=== PATIENT | female | born 1970 | race Caucasian/White ===

== ENCOUNTER 2020-06-04 13:15 | Emergency (ER) | payer MEDICAID, SELFPAY ==
[~2020-06-04] VITALS: Ht 165.1 cm; Wt 85.9 kg
[2020-06-04] MEDS ORDERED: PROV108A INH (13:31)
[2020-06-04] MEDS ORDERED: BYST10TA2 PO (13:31)
[2020-06-04] MEDS ORDERED: SYNT137T7 PO (13:31)
[2020-06-04] MEDS ORDERED: ZYPR20TA PO (13:31)
[2020-06-04] MEDS ORDERED: BUPR1FIL5 SL (13:31)
[2020-06-04] MEDS ORDERED: SYMB16INH INH (13:31)
[2020-06-04] MEDS ORDERED: SUBO8MIS SL (13:31)
[2020-06-04] MEDS ORDERED: LOSA100T50 PO (13:31)
[2020-06-04] MEDS ORDERED: ALBU83IN NEB (13:31)
[2020-06-04 15:01] LABS: BASO # 0.1 10^3/uL (0.0-0.2); BASO % 0.7 % (0.0-1.0); EOS # 0.1 10^3/uL (0.0-0.5); EOS % 1.9 % (0.0-3.0); HEMATOCRIT 44.6 % (36.0-47.0); HEMOGLOBIN 13.7 g/dl (12.0-15.5); LYMPH # 2.3 10^3/uL (1.5-5.0); LYMPH % 34.5 % (24.0-44.0); MEAN CORPUSCULAR HEMOGLOBIN 27.1 pg (27.0-33.0); MEAN CORPUSCULAR HGB CONC 30.7 g/dl (32.0-36.5); MEAN CORPUSCULAR VOLUME 88.1 fl (80.0-96.0); MONO # 0.6 10^3/uL (0.0-0.8); MONO % 8.4 % (0.0-5.0); NEUTROPHILS # 3.7 10^3/uL (1.5-8.5); NEUTROPHILS % 54.4 % (36.0-66.0); PLATELET COUNT, AUTOMATED 191 10^3/uL (150-450); RED BLOOD COUNT 5.06 10^6/uL (4.00-5.40); WHITE BLOOD COUNT 6.8 10^3/uL (4.0-10.0)
[2020-06-04 15:59] LABS: ALBUMIN 3.9 GM/DL (3.2-5.2); ALT/SGPT 17 U/L (12-78); BILIRUBIN,TOTAL 0.2 MG/DL (0.2-1.0); BLOOD UREA NITROGEN 24 MG/DL (7-18); CALCIUM LEVEL 9.4 MG/DL (8.5-10.1); CARBON DIOXIDE LEVEL 36 MEQ/L (21-32); CHLORIDE LEVEL 99 MEQ/L (98-107); CK-MB VALUE MASS 2.9 NG/ML (<3.6); CPK CREATINE PHOSPHOKINASE 238 U/L (26-192); CREATININE FOR GFR 1.99 MG/DL (0.55-1.30); FREE T4 0.21 NG/DL (0.76-1.46); GLOMERULAR FILTRATION RATE 28.2 (>51); GLUCOSE, FASTING 61 MG/DL (70-100); MAGNESIUM LEVEL 2.3 MG/DL (1.8-2.4); MB/CK RELATIVE INDEX 1.22 (< OR =4); SODIUM LEVEL 137 MEQ/L (136-145); TROPONIN I < 0.02 NG/ML (< 0.10)
[2020-06-04 16:21] VITALS: BP 142/84
[2020-06-04] MEDS ORDERED: LEVO137T2 PO (16:26)
--- NOTE | 2020-06-06 08:20 | ECGEPIP ---
[facility] Test Date: 2020-06-04 Pat Name: AVNI OLSON Department: Room: - Gender: Female Kettleman: riya : 1970 Requested By: OSCAR BAPTISTE Order Number: [id number] Reading MD: Oscar Liz Measurements Intervals [place] Rate: 53 P: 69 NM: 188 QRS: 54 QRSD: 80 T: 64 QT: 428 QTc: 401 Interpretive Statements Sinus bradycardia Comparison tracing not on file Electronically Signed on 06-06-2020 8:20:23 EST by Oscar Liz
== END 2020-06-04 16:41 | disposition home or self-care (01) ==
LOC: M ED 13:15
DX: E03.9 Hypothyroidism, unspecified (principal); N18.9 Chronic kidney disease, unspecified; R00.1 Bradycardia, unspecified; I10 Essential (primary) hypertension; J44.9 Chronic obstructive pulmonary disease, unspecified; E78.5 Hyperlipidemia, unspecified; F43.10 Post-traumatic stress disorder, unspecified; F17.200 Nicotine dependence, unspecified, uncomplicated; Z79.899 Other long term (current) drug therapy

== ENCOUNTER 2020-10-12 09:41 | Emergency (ER) | payer MEDICAID, OTHER ==
[~2020-10-12] VITALS: Ht 165.1 cm; Wt 84.1 kg
[~2020-10-12 09:41] MED LIST: ALBU83IN NEB; BUPR1FIL5 SL; BYST10TA2 PO; LEVO137T2 PO; LOSA100T50 PO; PROV108A INH; SUBO8MIS SL; SYMB16INH INH; SYNT137T7 PO; ZYPR20TA PO
[2020-10-12] MEDS ORDERED: dexameTHASONE 20MG/5ML VIAL (J1100 PER 1MG) IV ONE (10:40)
[2020-10-12] MEDS ORDERED: COMBIVENT RESPIMAT 100-20MCG INHALER 4GM INH ONE (10:40)
--- NOTE | 2020-10-12 11:05 | REP ---
INDICATION: DYSPNEA/COUGH. COMPARISON: None. TECHNIQUE: Portable FINDINGS: The technique utilized in obtaining the radiograph has magnified the cardiac silhouette and accentuated the interstitial markings. The superior mediastinal structures are midline. The cardiac silhouette is upper limits normal in size for portable technique. The diaphragmatic surfaces of the lungs are regular, and the costophrenic angles are clear. The pulmonary samuel are clear. The imaged osseous structures are intact. IMPRESSION: There is no acute cardiopulmonary disease. <Electronically signed by Larry Bryan > 10/12/20 3000
[2020-10-12 11:19] LABS: BASO # 0.1 10^3/uL (0.0-0.2); BASO % 0.6 % (0.0-1.0); EOS # 0.1 10^3/uL (0.0-0.5); EOS % 1.1 % (0.0-3.0); HEMATOCRIT 38.4 % (36.0-47.0); HEMOGLOBIN 12.2 g/dl (12.0-15.5); LYMPH # 2.2 10^3/uL (1.5-5.0); LYMPH % 28.3 % (24.0-44.0); MEAN CORPUSCULAR HEMOGLOBIN 28.8 pg (27.0-33.0); MEAN CORPUSCULAR HGB CONC 31.8 g/dl (32.0-36.5); MEAN CORPUSCULAR VOLUME 90.8 fl (80.0-96.0); MONO # 0.5 10^3/uL (0.0-0.8); MONO % 6.7 % (2.0-8.0); NEUTROPHILS % 62.9 % (36.0-66.0); PLATELET COUNT, AUTOMATED 208 10^3/uL (150-450); RED BLOOD COUNT 4.23 10^6/uL (4.00-5.40); WHITE BLOOD COUNT 7.9 10^3/uL (4.0-10.0)
[2020-10-12] MEDS ORDERED: LOSA100T50 PO (13:13)
[2020-10-12] MEDS ORDERED: SUBO8MIS SL (13:18)
[2020-10-12 14:18] LABS: ALBUMIN 4.1 GM/DL (3.2-5.2); ALT/SGPT 18 U/L (12-78); BILIRUBIN,DIRECT 0.1 MG/DL (0.0-0.2); BILIRUBIN,TOTAL 0.4 MG/DL (0.2-1.0); BLOOD UREA NITROGEN 29 MG/DL (7-18); CALCIUM LEVEL 8.4 MG/DL (8.5-10.1); CARBON DIOXIDE LEVEL 31 MEQ/L (21-32); CHLORIDE LEVEL 99 MEQ/L (98-107); CK-MB VALUE MASS 4.3 NG/ML (<3.6); CPK CREATINE PHOSPHOKINASE 269 U/L (26-192); CREATININE FOR GFR 1.61 MG/DL (0.55-1.30); GLOMERULAR FILTRATION RATE 36.1 (>51); GLUCOSE, FASTING 117 MG/DL (70-100); NT-PRO BNP 359 PG/ML (<125); POTASSIUM SERUM 4.8 MEQ/L (3.5-5.1); SODIUM LEVEL 133 MEQ/L (136-145); THYROXINE (T4) 3.3 UG/DL (4.5-12.0); TROPONIN I < 0.02 NG/ML (< 0.10)
--- NOTE | 2020-10-12 14:34 | ECGEPIP ---
[facility] - ED Test Date: 2020-10-12 Pat Name: AVNI OLSON Department: Room: - Gender: Female [employer] Rol[employer] Operator: : 1970 Requested By: ADALGISA Rodriguez Order Number: [id number] Reading MD: Olga Lidia Alonso Measurements Intervals [place] Rate: 48 P: 76 DC: 182 QRS: 55 QRSD: 80 T: 54 QT: 446 QTc: 398 Interpretive Statements Sinus bradycardia similar 06/04/20 Electronically Signed on 10-12-2020 14:33:48 EDT by Olga Lidia Alonso
[2020-10-12 14:54] VITALS: BP 142/89
[2020-10-12] MEDS ORDERED: SYNT137T7 PO (15:07)
[2020-10-12] MEDS ORDERED: SYMB16INH INH (15:07)
[2020-10-12] MEDS ORDERED: PRED20TA PO (15:08)
[2020-10-12] MEDS ORDERED: PROV108A INH (15:08)
== END 2020-10-12 15:37 | disposition home or self-care (01) ==
LOC: M ED 09:41
DX: J44.1 Chronic obstructive pulmonary disease with (acute) exacerbation (principal); F43.10 Post-traumatic stress disorder, unspecified; I10 Essential (primary) hypertension; F17.200 Nicotine dependence, unspecified, uncomplicated; R00.1 Bradycardia, unspecified
CPT/HCPCS: 36415; 71045; 80048; 80076; 82550; 82553; 83605; 83880; 84436; 84443; 85025; 87040; 87798; 93005; 93041; 94760; 96374; 99285; J1100

== ENCOUNTER → 2021-07-21 | Outpatient (CLI) | payer OTHER ==
[~2021-07-21] MED LIST changes: +BUPR1FIL35 SL; -BUPR1FIL5 SL; +LOSA100T45 PO; -LOSA100T50 PO; +PRED20TA PO
[2021-07-21 13:48] LABS: HEPATITIS B SURFACE ANTIBODY NEGATIVE (POSITIVE)
== END ==
LOC: M PLALAB 09:58
PROVIDERS: ATTEND Internal Medicine Infectious Disease
DX: Z86.19 Personal history of other infectious and parasitic diseases (principal)

== ENCOUNTER → 2021-12-29 | Outpatient (CLI) | payer OTHER ==
[~2021-12-29] MED LIST changes: +ALBU2.5V10 NEB; +ALBU6.7H6 INH; -ALBU83IN NEB; -PROV108A INH
== END ==
LOC: M RAD 15:36
PROVIDERS: ATTEND Nurse Practitioner Family
DX: J44.9 Chronic obstructive pulmonary disease, unspecified (principal)

== ENCOUNTER → 2022-05-26 | Outpatient (CLI) | payer OTHER ==
[2022-05-26 12:08] LABS: HEMOGLOBIN 13.1 g/dl (12.0-15.5); MEAN CORPUSCULAR HGB CONC 31.2 g/dl (32.0-36.5); MEAN CORPUSCULAR VOLUME 86.4 fl (80.0-96.0); PLATELET COUNT, AUTOMATED 226 10^3/uL (150-450); RED BLOOD COUNT 4.86 10^6/uL (4.00-5.40); WHITE BLOOD COUNT 7.7 10^3/uL (4.0-10.0)
[2022-05-26 12:52] LABS: ALBUMIN 3.7 G/DL (3.2-5.2); ALKALINE PHOSPHATASE 98 U/L (46-116); ALT/SGPT 13 U/L (7.0-40); AST/SGOT 20 U/L (<34); BILIRUBIN,TOTAL 0.3 MG/DL (0.3-1.2); BLOOD UREA NITROGEN 25 MG/DL (9-23); CALCIUM LEVEL 8.9 MG/DL (8.5-10.1); CARBON DIOXIDE LEVEL 28 MMOL/L (20-31); CHLORIDE LEVEL 102 MMOL/L (98-107); CREATININE FOR GFR 1.32 MG/DL (0.55-1.30); GLUCOSE, FASTING 90 MG/DL (60-100); SODIUM LEVEL 135 MMOL/L (136-145); TOTAL PROTEIN 7.7 G/DL (5.7-8.2)
[2022-05-26 13:03] LABS: HCG, SERUM QUALITATIVE NEGATIVE (NEGATIVE)
[2022-05-26 13:27] LABS: HEPATITIS B SURFACE ANTIGEN NEGATIVE (NEGATIVE)
[2022-05-26 13:39] LABS: HIV 1&2 SCREEN CENTAUR NEGATIVE (NEGATIVE)
[2022-05-26 14:39] LABS: GC DNA AMPLIFICATION NEGATIVE (NEGATIVE)
[2022-05-26 14:40] LABS: HEPATITIS C VIRUS ABY INDEX > 11.0 INDEX (<0.8)
== END ==
LOC: M LAB 11:17
PROVIDERS: ATTEND Family Medicine
DX: F11.20 Opioid dependence, uncomplicated (principal)

== ENCOUNTER → 2022-11-24 | Outpatient (REF) | payer OTHER ==
[~2022-11-24] MED LIST changes: -LOSA100T45 PO; +LOSA100T46 PO
[2022-11-24 16:09] LABS: BILIRUBIN,TOTAL 0.4 MG/DL (0.3-1.2); CALCIUM LEVEL 9.7 MG/DL (8.5-10.1); CHOLESTEROL RISK RATIO 2.58 (<5); CREATININE FOR GFR 1.34 MG/DL (0.55-1.30); GLOMERULAR FILTRATION RATE 44.2 (>51); HDL CHOLESTEROL 71.3 MG/DL (>40); LDL CHOLESTEROL 93.5 MG/DL (<100); NON-HDL-C 112.7 MG/DL; POTASSIUM SERUM 4.7 MMOL/L (3.5-5.1); THYROID STIMULATING HORMONE 2.934 uIU/ML (0.55-4.78); TOTAL PROTEIN 7.4 G/DL (5.7-8.2)
== END ==
LOC: M LAB REF 12:10
PROVIDERS: ATTEND Family Medicine Addiction Medicine
DX: I10 Essential (primary) hypertension (principal); E03.9 Hypothyroidism, unspecified

== ENCOUNTER → 2023-02-23 | Outpatient (REF) | payer OTHER | LOC: M LAB REF 16:45 | PROVIDERS: ATTEND Family Medicine Addiction Medicine | DX: E03.9 Hypothyroidism, unspecified (principal) ==

== ENCOUNTER → 2023-09-08 | Outpatient (REF) | payer OTHER ==
[2023-09-08 17:14] LABS: ALBUMIN 3.8 G/DL (3.2-5.2); BILIRUBIN,TOTAL 0.3 MG/DL (0.3-1.2); CHOLESTEROL RISK RATIO 2.99 (<5); CREATININE FOR GFR 1.64 MG/DL (0.55-1.30); GLOMERULAR FILTRATION RATE 34.9 (>51); HDL CHOLESTEROL 65.7 MG/DL (>40); LDL CHOLESTEROL 114.3 MG/DL (<100); NON-HDL-C 131.3 MG/DL; POTASSIUM SERUM 5.3 MMOL/L (3.5-5.1); TOTAL PROTEIN 7.4 G/DL (5.7-8.2)
[2023-09-08 17:15] LABS: THYROID STIMULATING HORMONE 2.814 uIU/ML (0.55-4.78)
[2023-09-08 17:16] LABS: FREE T4 1.55 NG/DL (0.89-1.76)
== END ==
LOC: M LAB REF 16:19
PROVIDERS: ATTEND Family Medicine Addiction Medicine
DX: I10 Essential (primary) hypertension (principal)

== ENCOUNTER 2023-10-11 17:12 | Emergency (ER) | payer OTHER ==
[~2023-10-11] VITALS: Ht 165.1 cm; Wt 82.7 kg
[2023-10-11 17:18] VITALS: BP 186/92; TEMP 97.4; O2SAT 99
[2023-10-11] MEDS ORDERED: NORV5TAB PO (17:31)
[2023-10-11] MEDS ORDERED: CARV25TA PO (17:31)
== END 2023-10-11 18:38 | disposition left against medical advice (07) ==
LOC: EDBD 17:12 → M ED 17:12
DX: Z53.21 Procedure and treatment not carried out due to patient leaving prior to being seen by health care provider (principal)

== ENCOUNTER 2023-11-25 10:34 | Observation (INO) | payer OTHER ==
[~2023-11-25] VITALS: Ht 165.1 cm; Wt 82.5 kg
[~2023-11-25 10:34] MED LIST changes: +CARV25TA PO; +NORV5TAB PO
[2023-11-25] MEDS: NS 500 ML IV ONE (10:56)
[2023-11-25 11:10] LABS: BASO # 0.1 10^3/uL (0.0-0.2); BASO % 0.8 % (0.0-1.0); EOS # 0.2 10^3/uL (0.0-0.5); EOS % 2.6 % (0.0-3.0); HEMOGLOBIN 14.4 g/dl (12.0-15.5); LYMPH # 2.4 10^3/uL (1.5-5.0); MEAN CORPUSCULAR HEMOGLOBIN 27.1 pg (27.0-33.0); MEAN CORPUSCULAR VOLUME 84.7 fl (80.0-96.0); MONO # 0.8 10^3/uL (0.0-0.8); MONO % 8.9 % (2.0-8.0); NEUTROPHILS # 5.6 10^3/uL (1.5-8.5); NEUTROPHILS % 61.5 % (36.0-66.0); PLATELET COUNT, AUTOMATED 239 10^3/uL (150-450); RED BLOOD COUNT 5.31 10^6/uL (4.00-5.40); WHITE BLOOD COUNT 9.1 10^3/uL (4.0-10.0)
[2023-11-25 11:23] LABS: INR 1.01; PARTIAL THROMBOPLASTIN TIME 28.4 SECONDS (24.8-34.2)
[2023-11-25 11:31] LABS: CK-MB VALUE MASS < 1.0 NG/ML (<3.6); LIPASE 39 U/L (12-53)
[2023-11-25 11:33] LABS: CPK CREATINE PHOSPHOKINASE 56 U/L (34-145); MB/CK RELATIVE INDEX 1.78 (< OR =4)
[2023-11-25 11:34] LABS: ALBUMIN 3.7 G/DL (3.2-5.2); ALKALINE PHOSPHATASE 92 U/L (46-116); ALT/SGPT 12 U/L (7.0-40); AST/SGOT 10 U/L (<34); BILIRUBIN,DIRECT 0.1 MG/DL (<0.4); BILIRUBIN,TOTAL 0.4 MG/DL (0.3-1.2); BLOOD UREA NITROGEN 32 MG/DL (9-23); CARBON DIOXIDE LEVEL 27 MMOL/L (20-31); CHLORIDE LEVEL 107 MMOL/L (98-107); CREATININE FOR GFR 1.77 MG/DL (0.55-1.30); GLOMERULAR FILTRATION RATE 31.9 (>51); GLUCOSE, FASTING 101 MG/DL (60-100); POTASSIUM SERUM 4.7 MMOL/L (3.5-5.1); SODIUM LEVEL 137 MMOL/L (136-145); TOTAL PROTEIN 7.3 G/DL (5.7-8.2)
[2023-11-25 11:35] LABS: FREE T4 1.55 NG/DL (0.89-1.76)
[2023-11-25 11:36] LABS: THYROID STIMULATING HORMONE 1.315 uIU/ML (0.55-4.78)
[2023-11-25] MEDS ORDERED: ISOVUE-370 76% 100ML VIAL As Ordered ONE (11:40)
[2023-11-25] MEDS: ASPIRIN 81MG ENTERIC TABLET PO STA (13:23)
[2023-11-25] MEDS: CLOPIDOGREL 75 MG TAB PO ONE (13:23)
[2023-11-25 13:35] LABS: CK-MB VALUE MASS < 1.0 NG/ML (<3.6)
[2023-11-25 13:42] LABS: CPK CREATINE PHOSPHOKINASE 52 U/L (34-145); MB/CK RELATIVE INDEX 1.92 (< OR =4)
[2023-11-25] MEDS: LORazepam 2 MG/ML 1ML VIAL IV STA (13:44)
[2023-11-25] MEDS ORDERED: BUPR1FIL3 SL (15:30)
[2023-11-25] MEDS ORDERED: LEVO125T4 PO (15:30)
[2023-11-25] MEDS ORDERED: AMLO1TAB25 PO (15:30)
[2023-11-25] MEDS ORDERED: SUBO12MI SL (15:30)
[2023-11-25] MEDS ORDERED: HYDR-643 PO (15:30)
[2023-11-25] MEDS ORDERED: ARIP10TA32 PO (15:30)
[2023-11-25] MEDS ORDERED: ATOM25CA7 PO (15:30)
[2023-11-25] MEDS ORDERED: LAMO100T3 PO (15:30)
[2023-11-25] MEDS ORDERED: HOME MED LIST COMPLETE! XX SCH (15:35)
[2023-11-25] MEDS ORDERED: ACETAMINOPHEN TAB 650MG DOSE (2X325MG) PO PRN (15:50)
[2023-11-25 17:45] VITALS: BP 168/88; TEMP 97.5; O2SAT 96
[2023-11-25 20:00] VITALS: BP 168/88; TEMP 97.5; O2SAT 96
[2023-11-25 21:00] VITALS: BP 174/86; TEMP 97.3; O2SAT 95
[2023-11-25 21:03] VITALS: BP 158/78
[2023-11-25] MEDS: HEPARIN SOD (PORCINE) 5000UNITS/ML 1ML VIAL/SYRINGE SC SCH (21:17)
[2023-11-25] MEDS: BUPRENORPHINE/NALOXONE 8-2MG SUBLINGUAL TABLET(SUBOXONE) SL SCH (21:17)
[2023-11-25] MEDS: lamoTRIgine 100MG TAB PO SCH (21:17)
[2023-11-25] MEDS: BUPRENORPHINE/NALOXONE 2-0.5MG SUBLINGUAL TABLET(SUBOXONE) SL SCH (21:17)
[2023-11-26] VITALS (8 sets, daily range): BP systolic 127–166; BP diastolic 68–92; TEMP 96.8–98.1; O2SAT 93–98
[2023-11-26 06:30] LABS: BASO # 0.1 10^3/uL (0.0-0.2); BASO % 0.6 % (0.0-1.0); EOS # 0.2 10^3/uL (0.0-0.5); EOS % 2.2 % (0.0-3.0); HEMATOCRIT 46.5 % (36.0-47.0); HEMOGLOBIN 14.7 g/dl (12.0-15.5); LYMPH # 2.4 10^3/uL (1.5-5.0); MEAN CORPUSCULAR HEMOGLOBIN 26.8 pg (27.0-33.0); MEAN CORPUSCULAR HGB CONC 31.6 g/dl (32.0-36.5); MEAN CORPUSCULAR VOLUME 84.7 fl (80.0-96.0); MONO # 0.9 10^3/uL (0.0-0.8); MONO % 9.4 % (2.0-8.0); NEUTROPHILS # 6.1 10^3/uL (1.5-8.5); NEUTROPHILS % 62.6 % (36.0-66.0); PLATELET COUNT, AUTOMATED 237 10^3/uL (150-450); RED BLOOD COUNT 5.49 10^6/uL (4.00-5.40); WHITE BLOOD COUNT 9.7 10^3/uL (4.0-10.0)
[2023-11-26] MEDS: LEVOTHYROXINE 125MCG TABLET (0.125MG) PO SCH (06:34)
[2023-11-26 07:00] LABS: HEMOGLOBIN A1c 5.5 % (4.0-6.0)
[2023-11-26 07:06] LABS: CALCIUM LEVEL 8.8 MG/DL (8.5-10.1); CHOLESTEROL RISK RATIO 3.51 (<5); CREATININE FOR GFR 1.44 MG/DL (0.55-1.30); GLOMERULAR FILTRATION RATE 40.5 (>51); HDL CHOLESTEROL 55.4 MG/DL (>40); LDL CHOLESTEROL 119.4 MG/DL (<100); NON-HDL-C 139.6 MG/DL; POTASSIUM SERUM 4.5 MMOL/L (3.5-5.1)
[2023-11-26 07:07] LABS: FOLATE 10.56 NG/ML (>5.4); VITAMIN B12 LEVEL 404 PG/ML (211-911)
[2023-11-26] MEDS: ATORVASTATIN 20 MG TAB PO SCH (08:05)
[2023-11-26] MEDS: CLOPIDOGREL 75 MG TAB PO SCH (08:06)
[2023-11-26] MEDS: ASPIRIN 81MG CHEW TABLET PO SCH (08:06)
[2023-11-26] MEDS: ARIPiprazole 10 MG TAB PO SCH (08:06)
[2023-11-26] MEDS: ATOMOXETINE HCL 40 MG CAP (STRATTERA) PO SCH (08:06)
[2023-11-26] MEDS: BUPRENORPHINE/NALOXONE 8-2MG SUBLINGUAL TABLET(SUBOXONE) SL SCH (08:07)
[2023-11-26] MEDS: BUPRENORPHINE/NALOXONE 2-0.5MG SUBLINGUAL TABLET(SUBOXONE) SL SCH (08:07)
[2023-11-26] MEDS ORDERED: ATORVASTATIN 20 MG TAB PO SCH (09:00)
[2023-11-26] MEDS ORDERED: PILL CUTTER 1 EACH XX ONE (21:15)
[2023-11-27] VITALS: BP 156/80; TEMP 97; O2SAT 96
[2023-11-27 06:32] VITALS: BP_SYST 156; BP_SYST 158; BP_DIAS 78; BP_DIAS 80; TEMP 97; TEMP 97.5; O2SAT 96
[2023-11-27 08:00] VITALS: BP 148/83; TEMP 97.3; O2SAT 98
[2023-11-27 12:00] VITALS: BP 141/93; TEMP 97.3; O2SAT 99
[2023-11-27] MEDS ORDERED: CLOP75TA2 PO (12:06)
[2023-11-27] MEDS ORDERED: ATOR1TAB21 PO (12:06)
[2023-11-27] MEDS ORDERED: ASPI81CH8 PO (12:06)
[2023-11-29 12:21] LABS: SSA SJOGRENS A <1.0 NEG AI (<1.0 NEG); SSB SJOGRENS B <1.0 NEG AI (<1.0 NEG)
[2023-11-29 16:51] LABS: ANA SCREEN, IFA NEGATIVE (NEGATIVE)
[2023-11-30 14:42] LABS: PROTEIN S ANTIGEN FREE 96 % normal (50-147); PROTEIN S ANTIGEN TOTAL 122 % normal (70-140)
[2023-12-03 00:43] LABS: APTT APSCOMP 40 sec (<=40); DRVTT Screen Seconds 40 sec (<=45)
[2023-12-03 02:38] LABS: FACTOR II PROTHROMBIN GENE AN NEGATIVE
[2023-12-03 16:03] LABS: PROTEIN C ANTIGEN 70 % normal (70-140)
[2023-12-05 18:42] LABS: FACTOR V LEIDEN FOR MEDINET NEGATIVE
[2023-12-07 06:58] LABS: Anticardiolipin Ab, IGG 4.3 GPL-U/mL (<20.0); Anticardiolipin Ab, IGM < 2.0 MPL-U/mL (<20.0); Anticardiolipin Ab, IgA 4.5 APL-U/mL (<20.0); Beta-2 GLYCOPROTEIN I, IGG < 2.0 U/mL (<20.0); Beta-2 Glycoprotein I, IGA 2.8 U/mL (<20.0); Beta-2 Glycoprotein I, IGM < 2.0 U/mL (<20.0)
[2023-12-07 14:02] LABS: ANTI DS-DNA AB POSITIVE (NEGATIVE); ANTI DS-DNA TITER 1:10 titer (<1:10)
== END 2023-11-27 13:17 | disposition home or self-care (01) ==
LOC: EDSEX 10:34 → M ED 10:34 → EDBD 10:34 → M ED INP 15:47 → M MSPAV 17:56
PROVIDERS: ADMIT Internal Medicine; ATTEND Internal Medicine
DX: I63.542 Cerebral infarction due to unspecified occlusion or stenosis of left cerebellar artery (principal); I12.9 Hypertensive chronic kidney disease with stage 1 through stage 4 chronic kidney disease, or unspecified chronic kidney disease; E03.9 Hypothyroidism, unspecified; N18.9 Chronic kidney disease, unspecified; J44.9 Chronic obstructive pulmonary disease, unspecified; F90.9 Attention-deficit hyperactivity disorder, unspecified type; Z79.891 Long term (current) use of opiate analgesic; Z79.82 Long term (current) use of aspirin; Z79.02 Long term (current) use of antithrombotics/antiplatelets; Z79.899 Other long term (current) drug therapy
CPT/HCPCS: 36415; 70450; 70496; 70498; 70551; 71045; 80047; 80048; 80061; 80076; 81240; 82550; 82553; 82607; 82746; 83036; 83690; 84439; 84443; 84484; 85025; 85301; 85302; 85305; 85306; 85610; 85730; 86021; 86038; 86146; 86147; 86235; 86255; 86780; 93005; 93041; 93306; 94760; 96372; 96374; 96375; 99285; J2060; Q9967

== ENCOUNTER → 2023-11-30 | Outpatient (REF) | payer OTHER ==
[~2023-11-30] MED LIST changes: +AMLO1TAB25 PO; +ARIP10TA32 PO; +ASPI81CH8 PO; +ATOM25CA7 PO; +ATOR1TAB21 PO; +BUPR1FIL3 SL; +CLOP75TA2 PO; +HYDR-643 PO; +LAMO100T3 PO; +LEVO125T4 PO; +SUBO12MI SL
[2023-11-30 18:40] LABS: TOTAL PROTEIN,RANDOM URINE 27.1 MG/DL (0.0-14.0)
[2023-11-30 18:45] LABS: CREATININE,RANDOM URINE 70.6 MG/DL
[2023-12-03 02:18] LABS: PROTEIN, TOTAL SO 7.7 g/dL (6.1-8.1)
== END ==
LOC: M LAB REF 16:56
PROVIDERS: ATTEND Internal Medicine Nephrology
DX: I12.9 Hypertensive chronic kidney disease with stage 1 through stage 4 chronic kidney disease, or unspecified chronic kidney disease (principal); N18.32 Chronic kidney disease, stage 3b

== ENCOUNTER → 2024-02-06 | Outpatient (REF) | payer OTHER ==
[~2024-02-06] MED LIST changes: -ARIP10TA32 PO; +ARIP10TA63 PO; -BYST10TA2 PO; +BYST1TAB3 PO
[2024-02-06 11:05] LABS: APPEARANCE, URINE CLEAR (CLEAR); BACTERIA, URINE AUTO NEGATIVE (NEGATIVE); BILIRUBIN, URINE AUTO NEGATIVE (NEGATIVE); BLOOD, URINE BLOOD NEGATIVE (NEGATIVE); COLOR, URINE YELLOW (YELLOW); GLUCOSE, URINE (UA) AUTO NEGATIVE (NEGATIVE); KETONE, URINE AUTO NEGATIVE (NEGATIVE); LEUKOCYTE ESTERASE, URINE AUTO NEGATIVE (NEGATIVE); MUCUS, URINE SMALL (NEGATIVE); NITRITE, URINE AUTO NEGATIVE (NEGATIVE); PROTEIN, URINE AUTO NEGATIVE (NEGATIVE); RBC, URINE AUTO 1 /HPF (0-3); SPECIFIC GRAVITY URINE AUTO 1.015 (1.002-1.035); SQUAMOUS EPITHELIAL CELL UR AU 1 /HPF (0-6); UROBILINOGEN, URINE AUTO 0.2 mg/dL (0.0-2.0); WBC, URINE AUTO 2 /HPF (0-3)
== END ==
LOC: M SMT 10:15
PROVIDERS: ATTEND Nurse Practitioner Family
DX: N32.81 Overactive bladder (principal)

== ENCOUNTER → 2024-04-10 | Outpatient (REF) | payer OTHER | LOC: M LAB REF 17:23 | PROVIDERS: ATTEND Internal Medicine Nephrology | DX: D47.2 Monoclonal gammopathy (principal) ==

== ENCOUNTER → 2024-04-19 | Outpatient (CLI) | payer OTHER | LOC: M RAD 12:04 | PROVIDERS: ATTEND Internal Medicine Critical Care Medicine | DX: Z87.891 Personal history of nicotine dependence (principal) ==

== ENCOUNTER 2025-04-02 14:14 | Emergency (ER) | payer OTHER ==
[~2025-04-02] VITALS: Ht 162.6 cm; Wt 72.3 kg
[~2025-04-02 14:14] MED LIST changes: +AMOX500C PO; +AMPH1TAB2 PO; +BUSP10TA PO; +CLON0.5T2 PO; +LUMA21CA PO; +OLAN20TA74 PO; +VITA1CAP25 PO; -ZYPR20TA PO
[2025-04-02 15:26] VITALS: BP 168/89
[2025-04-02] MEDS: amLODIPine 10 MG TAB PO ONE (15:26)
[2025-04-02 15:32] LABS: BASO # 0.1 10^3/uL (0.0-0.2); BASO % 1.3 % (0.0-1.0); EOS # 0.2 10^3/uL (0.0-0.5); EOS % 2.5 % (0.0-3.0); LYMPH # 2.1 10^3/uL (1.5-5.0); LYMPH % 29.7 % (24.0-44.0); MONO # 0.7 10^3/uL (0.0-0.8); MONO % 9.1 % (2.0-8.0); NEUTROPHILS # 4.1 10^3/uL (1.5-8.5); NEUTROPHILS % 57.3 % (36.0-66.0); PLATELET COUNT, AUTOMATED 211 10^3/uL (150-450)
[2025-04-02 15:45] VITALS: TEMP 99
[2025-04-02 15:54] LABS: CALCIUM LEVEL 8.5 MG/DL (8.5-10.1); CARBON DIOXIDE LEVEL 28.0 MMOL/L (20-31); CHLORIDE LEVEL 102.0 MMOL/L (98-107); CK-MB VALUE MASS 24.3 NG/ML (<3.6); CREATININE FOR GFR 2.26 MG/DL (0.55-1.30); GLOMERULAR FILTRATION RATE 25.0 (>51); POTASSIUM SERUM 3.9 MMOL/L (3.5-5.1); SODIUM LEVEL 138.0 MMOL/L (136-145)
[2025-04-02 15:55] LABS: CPK CREATINE PHOSPHOKINASE 1271.0 U/L (34-145); MB/CK RELATIVE INDEX 1.91 (< OR =4)
[2025-04-02 16:00] VITALS: BP 170/91; O2SAT 91
== END 2025-04-02 16:41 | disposition left against medical advice (07) ==
LOC: M ED 14:14
DX: I10 Essential (primary) hypertension (principal); Z53.9 Procedure and treatment not carried out, unspecified reason; J44.9 Chronic obstructive pulmonary disease, unspecified; G40.89 Other seizures; E05.90 Thyrotoxicosis, unspecified without thyrotoxic crisis or storm; F17.200 Nicotine dependence, unspecified, uncomplicated; Z86.73 Personal history of transient ischemic attack (TIA), and cerebral infarction without residual deficits

== ENCOUNTER → 2025-04-09 | Outpatient (REF) | payer OTHER ==
[2025-04-09 17:05] LABS: CALCIUM LEVEL 9.3 MG/DL (8.5-10.1); CARBON DIOXIDE LEVEL 31 MMOL/L (20-31); CHLORIDE LEVEL 98 MMOL/L (98-107); CREATININE FOR GFR 1.64 MG/DL (0.55-1.30); GLOMERULAR FILTRATION RATE 36.8 (>51); POTASSIUM SERUM 4.1 MMOL/L (3.5-5.1); SODIUM LEVEL 137 MMOL/L (136-145)
[2025-04-09 17:37] LABS: HIV 1&2 SCREEN NEGATIVE (NEGATIVE)
[2025-04-09 17:47] LABS: CPK CREATINE PHOSPHOKINASE 510 U/L (34-145); HEPATITIS C VIRUS ABY INDEX > 11.00 INDEX (<0.8)
[2025-04-12 13:08] LABS: HCV RNA QUANTITATION <15 NOT DETECTED IU/mL (NOT DETECTED); HCV RNA log10 <1.18 NOT DETECTED Log IU/mL (NOT DETECTED)
== END ==
LOC: M LAB REF 13:29
PROVIDERS: ATTEND Pediatrics
DX: R35.0 Frequency of micturition (principal); E03.9 Hypothyroidism, unspecified; N17.9 Acute kidney failure, unspecified; R74.8 Abnormal levels of other serum enzymes; B19.20 Unspecified viral hepatitis C without hepatic coma; Z11.4 Encounter for screening for human immunodeficiency virus [HIV]